=== PATIENT | male | born 1955 ===

== ENCOUNTER 2025-02-04 11:12 | Outpatient (CLI) | payer OTHER, SELFPAY | END 2025-02-04 11:13 | disposition home or self-care (01) | PROVIDERS: PCP Family Medicine; Visit Provider Family Medicine | DX: E78.5 Hyperlipidemia, unspecified (principal); G31.84 Mild cognitive impairment of uncertain or unknown etiology; Z13.21 Encounter for screening for nutritional disorder | CPT/HCPCS: 80048; 80061; 82607 ==